=== PATIENT | male | born 1960 | race Caucasian/White ===

== ENCOUNTER 2025-04-05 12:43 | Emergency (ER) | payer OTHER, SELFPAY ==
[2025-04-05 12:46] VITALS: BP 166/90
[2025-04-05] MEDS: BENADRYL 25 MG IV (13:47)
[2025-04-05] MEDS: DECADRON 10 MG IV (13:47)
[2025-04-05] MEDS: PEPCID 20 MG IV (13:48)
[2025-04-05 14:05] VITALS: BMI 22.6
[2025-04-05 14:07] VITALS: BP 114/94
[2025-04-05 15:00] VITALS: BP 102/62
--- NOTE | 2025-04-05 15:19 | ED.GENMED ---
History of Present Illness
General
Chief Complaint: Allergic Reaction
Source: patient
Exam Limitations: none
Time Seen by Provider: 04/05/25 13:04
Nursing documentation reviewed up to this point in time: agreed with
History of Present Illness
History of Present Illness:
Patient with history of hypertension on lisinopril for over 20 years, presents to ED secondary to sudden onset of lip swelling, while he was at work this morning around 9:15 AM. Lip swelling started on the left side and has started to involve right
side of his lip. Patient has taken Benadryl without any relief in symptoms. Denies tongue swelling. Denies throat swelling sensation. Denies nausea or vomiting. Denies difficulty with swallowing. Denies shortness of breath. Denies trauma.
Denies insect or bug bite. Denies previous history of similar symptoms.
Review of Systems
Review of Systems
Allergies reviewed?: Yes
All Other Systems: ROS reviewed and negative except as documented in HPI and ROS
Constitutional: Reports no symptoms; Denies fever
Respiratory: Reports no symptoms; Denies trouble breathing
Cardiac: Reports no symptoms; Denies chest pain
ABD/GI: Reports no symptoms; Denies vomiting
Musculoskeletal: Reports no symptoms
Skin: Reports other (Lip swelling)
Neurological: Reports no symptoms; Denies dizzy or headache
Phy Exam
Physical Exam
Physical Exam:
Physical Exam
General: no apparent distress, not acutely ill. afebrile
Head: nc/at. eomi
Neck: supple. normal range of motion. normal posterior pharynx and well visualized. tongue normal
Heart: s1/s2 regular rate and rhythm
Lungs: no acute respiratory distress. clear bilaterally
Abdomen: normal bowel sounds. not tender.
Neuro: alert and oriented x 3. no focal neurological deficits
Skin: left upper/lower lip swelling, without any puncture edilberto
Psychiatric: well kept. interactive and cooperative
Extremities: no edema. no calf tenderness.
Course
Orders/Labs/Results
Orders:
Orders
04/05/25 13:09
Dexamethasone Sod Phosphate [Decadron] 10 mg IV NOW STA
Diphenhydramine [Benadryl] 25 mg IV NOW STA
Famotidine [Pepcid] 20 mg IV NOW STA
Vital Signs
Initial and Last Documented VS:
Initial Vital Signs
Temp Pulse Resp BP Pulse Ox
98.0 F 113 20 166/90 96
04/05/25 12:46 04/05/25 12:46 04/05/25 12:46 04/05/25 12:46 04/05/25 12:46
Last Documented Vital Signs
Temp Pulse Resp BP Pulse Ox
98.3 F 83 19 102/62 94
04/05/25 15:07 04/05/25 15:45 04/05/25 15:45 04/05/25 15:00 04/05/25 15:45
MDM/Problems Addressed
MDM/Problems Addressed:
Patient with an acute lip swelling, of unknown etiology at this time. As symptoms only started on the left side of his mouth and progressed to cover right side of his, it is quite possible that he could be having an acute local inflammatory
response from potential exposure, i.e. insect bite. However, if there is no clear puncture edilberto noted or other injuries, patient will be advised to follow-up with primary care physician for reevaluation, including potential discontinuation of
lisinopril.
*Pulse Oximetry
SaO2: 95
Oxygen Mode of Delivery: Room air
Patient hypoxic: no
*Critical Care Note
Total Time (30-74mins, 75-104mins- exclusive of procedures): Not Applicable
ED Attending Note
-
Portions of this chart may have been created with voice recognition software.� Occasional wrong word or��sound alike� substitutions may have occurred due to the inherent limitations of voice recognition software.
Discharge Plan
Departure
Patient Disposition: Home (Routine Discharge)
Date of Disposition: 04/05/25
Time of Disposition: 15:55
Patient with high blood pressure during this ER visit?: Yes
Condition: Good
Discharge Problem:
Allergic reaction
Instructions: Allergic reaction - ED (DC)
Referrals:
Ankush Rust DO [Family Provider, Family Practice]
Activity Restrictions/Additional Instructions:
As discussed, please follow-up with your primary care physician for reevaluation. Please consider return to ED with worsening symptoms.
Interventions
Interventions:
*Risk Screen - Suicide Last Done: 04/05/25 12:46
*General Assessment Last Done: 04/05/25 12:46
*Neglect/Abuse Screening Last Done: 04/05/25 13:55
*ED- Fall Risk Assessment Last Done: 04/05/25 13:55
*ED COVID-19 Vaccine History Last Done: 04/05/25 13:55
*ED Influenza Vaccine History Last Done: 04/05/25 13:55
*Nursing Disposition Last Done: 04/05/25 16:14
ED- Cardiac Assessment Last Done: 04/05/25 13:55
ED- Pulmonary Assessment Last Done: 04/05/25 13:55
ED-Skin Assessment Last Done: 04/05/25 13:55
Discharge Date and Time
Discharge Date/Time: 04/05/25 16:15
Print Language: [employer]INE[employer]
== END 2025-04-05 16:15 | disposition home or self-care (01) ==
LOC: EMR 12:43
PROVIDERS: EMERGENCY PHYSICIAN Emergency Medicine; FAMILY PHYSICIAN Family Medicine
DX: T78.40XA Allergy, unspecified, initial encounter (principal); X58.XXXA Exposure to other specified factors, initial encounter; I10 Essential (primary) hypertension; Z79.899 Other long term (current) drug therapy
CPT/HCPCS: 96374; 96375; 99284